=== PATIENT | male | born 1975 | race Caucasian/White ===

== ENCOUNTER 2024-11-26 14:23 | Emergency (ER) | payer SELFPAY ==
[~2024-11-26] VITALS: Ht 170.2 cm; Wt 102.1 kg
[2024-11-26] MEDS ORDERED: IOHEXOL 350 100 ML INFUS..BTL ONE (14:56)
[2024-11-26 15:09] LABS: PLATELET COUNT (AUTO) 157 K/uL (152-348); RED BLOOD CELL COUNT(AUTO) 5.33 MIL/uL (4.06-5.63); RED CELL DISTRIBUTION WIDTH 12.9 % (12.1-16.2); WHITE BLOOD COUNT (AUTO) 6.4 K/uL (3.6-10.2)
[2024-11-26 15:16] LABS: CREATININE 1.1 mg/dL (0.6-1.3); SODIUM SERUM 142 mmol/L (136-145); UREA NITROGEN, BLOOD 17 mg/dL (7-18)
[2024-11-26 15:22] LABS: ASPARTATE AMINOTRANSFERASE 13 U/L (15-37); TOTAL PROTEIN, SERUM 6.7 g/dL (6.4-8.2)
[2024-11-26] MEDS ORDERED: KETOROLAC TROMETHAMINE 15 MG INJ ONE (15:29)
[2024-11-26] MEDS ORDERED: METOCLOPRAMIDE HCL 10 MG/2 ML VIAL ONE (15:29)
[2024-11-26] MEDS: KETOROLAC TROMETHAMINE 15 MG INJ IVP ONE (15:38)
[2024-11-26] MEDS: METOCLOPRAMIDE HCL 10 MG/2 ML VIAL IV ONE (15:40)
[2024-11-26 18:00] VITALS: BP 111/87; O2SAT 96
[2024-11-26 18:18] LABS: *BILIRUBIN,URIN NEGATIVE (NEGATIVE); *BLOOD, URINE NEGATIVE (NEGATIVE); *CLARITY,URINE CLEAR (CLEAR); *COLOR,URINE YELLOW (YELLOW); *KETONES,URINE NEGATIVE (NEGATIVE); *PROTEIN,URINE NEGATIVE (NEGATIVE); *UROBILINOGEN,URINE 0.2 E.U./dl (NORMAL); LEUKOCYTE ESTERASE ,URINE NEGATIVE (NEGATIVE); NITRITE, URINE NEGATIVE (NEGATIVE); UGLUCOSE NEGATIVE (NEGATIVE)
== END 2024-11-26 18:08 | disposition home or self-care (01) ==
LOC: ER 14:23
DX: S06.0X0A Concussion without loss of consciousness, initial encounter (principal); M54.2 Cervicalgia; R11.2 Nausea with vomiting, unspecified; Z79.82 Long term (current) use of aspirin; Z85.47 Personal history of malignant neoplasm of testis; Z88.8 Allergy status to other drugs, medicaments and biological substances; Z95.2 Presence of prosthetic heart valve; Z99.2 Dependence on renal dialysis; Z87.19 Personal history of other diseases of the digestive system; W10.9XXA Fall (on) (from) unspecified stairs and steps, initial encounter; Y93.89 Activity, other specified; Y92.89 Other specified places as the place of occurrence of the external cause; Y99.8 Other external cause status
CPT/HCPCS: 99285; 70496; 96374; 71045; 96375; 80076; 80048; 81003; 85025; 85730; 86850; 86900; 86901; 84484; 36415; 70498; 93005; 70450; J1885; J2765; Q9967; A4606; A4663